=== PATIENT | male | born 1955 | race Caucasian/White ===

== ENCOUNTER 2023-08-07 07:49 | Outpatient (CLI) | payer BC, MEDICARE ==
[2023-08-07] MEDS ORDERED: Magnevist 469MG/ML 20 ML VIAL ONE (09:08)
== END 2023-08-07 07:50 | disposition home or self-care (01) ==
LOC: CSHMRI 07:49
PROVIDERS: ATTEND Internal Medicine Gastroenterology
DX: I85.00 Esophageal varices without bleeding (principal)
CPT/HCPCS: 74183; 82565; A9579